=== PATIENT | female | born 1970 | race Caucasian/White ===

== ENCOUNTER 2019-10-15 07:00 | Day surgery (SDC) | payer OTHER ==
[2019-10-11 15:40] LABS: BASOPHILS % (AUTO) 1.2 % (0.0-5.0); EOSINOPHILS % (AUTO) 1.6 % (0.0-8.0); HEMATOCRIT 39.1 % (36-48); LYMPHOCYTES % (AUTO) 28.1 % (21.0-51.0); MEAN CORPUSCULAR HEMOGLOBIN 32.3 pg (27.0-33.0); MEAN CORPUSCULAR HGB CONC 33.7 g/dL (32.0-36.0); MEAN CORPUSCULAR VOLUME 95.8 fL (79-99); MONOCYTES % (AUTO) 9.1 % (3.0-13.0); PLATELET COUNT (AUTO) 150 K/uL (130-400); RED BLOOD CELL COUNT(AUTO) 4.08 MIL/uL (4.00-5.50); RED CELL DISTRIBUTION WIDTH 13.4 % (11.0-15.5); WHITE BLOOD COUNT (AUTO) 8.7 K/uL (4.8-10.8)
[2019-10-11 16:11] VITALS: BP 111/71
[~2019-10-15] VITALS: Ht 162.6 cm; Wt 51.8 kg
[2019-10-15] VITALS (15 sets, daily range): BP systolic 114–141; BP diastolic 62–99
[~2019-10-15 07:00] MED LIST: ATOR10TA69 PO; BUPR100T5 PO; MULT1CAP32 PO; SPIR100T5 PO
[2019-10-15] MEDS: LACTATED RINGERS 1000ML 1,000 ML IV SCH ×2 (08:16→09:21)
[2019-10-15] MEDS ORDERED: LIDOCAINE PF 2% 5ML ABBOJECT ONE (09:01)
[2019-10-15] MEDS ORDERED: FENTANYL CITRATE PF 50 MCG/1 ML 2ML VIAL ONE (09:02)
[2019-10-15] MEDS ORDERED: PROPOFOL 10 MG/ML 20ML VIAL IV ONE (09:02)
[2019-10-15] MEDS ORDERED: SILVER NITRATE APPLICATOR 1 SWAB TP ONE ×2 (09:09→09:52)
[2019-10-15] MEDS ORDERED: EPHEDRINE SULFATE 50 MG/ML AMPULE ONE (09:17)
[2019-10-15] MEDS ORDERED: ONDANSETRON HCL 4 MG/2 ML VIAL ONE ×2 (09:59→10:37)
[2019-10-15] MEDS ORDERED: MEPERIDINE-PF 25 MG/ML SYG ONE ×2 (10:18→10:30)
[2019-10-15] MEDS ORDERED: MORPHINE SULFATE 4 MG/1ML SYG ONE (11:01)
[2019-10-15] MEDS ORDERED: METOCLOPRAMIDE 10 MG/2 ML VIAL ONE (11:50)
== END 2019-10-15 12:35 | disposition home or self-care (01) ==
LOC: DAH 07:00
PROVIDERS: ATTEND Specialist
DX: D17.72 Benign lipomatous neoplasm of other genitourinary organ (principal); K21.9 Gastro-esophageal reflux disease without esophagitis; Z88.5 Allergy status to narcotic agent; Z98.890 Other specified postprocedural states; Z79.899 Other long term (current) drug therapy; Z98.51 Tubal ligation status; Z87.891 Personal history of nicotine dependence; Z82.49 Family history of ischemic heart disease and other diseases of the circulatory system; Z83.3 Family history of diabetes mellitus
CPT/HCPCS: 36415; 56620; 85025; 88305; A4215; A4221; A4222; A4223; A4344; A4649 ×2; A4663; A6260; C1769; J2001; J2175 ×2; J2270; J2405 ×2; J2704; J2765; J3010; J3490; J7120

== ENCOUNTER 2021-06-01 06:33 | Day surgery (SDC) | payer OTHER ==
[2021-05-26 15:21] LABS: BASOPHILS % (AUTO) 0.5 % (0.0-5.0); EOSINOPHILS % (AUTO) 1.6 % (0.0-8.0); HEMATOCRIT 38.3 % (36-48); LYMPHOCYTES % (AUTO) 22.3 % (21.0-51.0); MEAN CORPUSCULAR HGB CONC 32.4 g/dL (32.0-36.0); MEAN CORPUSCULAR VOLUME 95.8 fL (79-99); MONOCYTES % (AUTO) 10.9 % (3.0-13.0); NEUTROPHILS % (AUTO) 64.4 % (40.0-77.0); PLATELET COUNT (AUTO) 175 K/uL (130-400); RED CELL DISTRIBUTION WIDTH 15.8 % (11.0-15.5); WHITE BLOOD COUNT (AUTO) 7.6 K/uL (4.8-10.8)
[2021-05-29 11:24] VITALS: BP 139/82
[2021-06-01] VITALS (22 sets, daily range): BP systolic 112–148; BP diastolic 60–99
[~2021-06-01] VITALS: Ht 160 cm; Wt 48.5 kg
[~2021-06-01 06:33] MED LIST changes: +AEC81 PO; -MULT1CAP32 PO; -SPIR100T5 PO
[2021-06-01] MEDS: LACTATED RINGERS 1000ML 1,000 ML IV SCH ×2 (07:18→08:24)
[2021-06-01] MEDS ORDERED: LIDOCAINE PF 100MG/5ML (2%) SYRINGE 5ML ONE (07:21)
[2021-06-01] MEDS ORDERED: PROPOFOL 10 MG/ML 20ML VIAL IV ONE (07:22)
[2021-06-01] MEDS ORDERED: FENTANYL CITRATE PF 50 MCG/1 ML 2ML VIAL ONE (07:22)
[2021-06-01] MEDS ORDERED: MEPERIDINE-PF 25 MG/ML SYG ONE (09:08)
[2021-06-01] MEDS ORDERED: METOCLOPRAMIDE 10 MG/2 ML VIAL ONE (09:17)
[2021-06-01] MEDS ORDERED: ONDANSETRON 4MG INJ ONE ×2 (09:17→10:08)
== END 2021-06-01 10:40 | disposition home or self-care (01) ==
LOC: DAH 06:33
PROVIDERS: ATTEND Specialist
DX: N92.0 Excessive and frequent menstruation with regular cycle (principal); E11.9 Type 2 diabetes mellitus without complications; Z20.822 Contact with and (suspected) exposure to COVID-19; Z88.6 Allergy status to analgesic agent; Z87.891 Personal history of nicotine dependence
CPT/HCPCS: 36415 ×2; 58120; 84703; 85025; 86850 ×2; 86900 ×2; 86901 ×2; 87635; A4215; A4221; A4222; A4223; A4351; A4663; A6260; C9803; J2001; J2175; J2405 ×2; J2704; J2765; J3010; J7120 ×2